=== PATIENT | male | born 1945 | race Asian ===

== ENCOUNTER 2016-06-29 07:48 | Outpatient (CLI) | payer OTHER | END 2016-06-29 20:11 | disposition home or self-care (01) | LOC: LABW 07:48 | DX: Z95.2 Presence of prosthetic heart valve (principal); I71.2 Thoracic aortic aneurysm, without rupture; Z98.61 Coronary angioplasty status; Z79.01 Long term (current) use of anticoagulants; Z51.81 Encounter for therapeutic drug level monitoring | CPT/HCPCS: 36415; 85610 ==

== ENCOUNTER 2016-07-27 07:36 | Outpatient (CLI) | payer OTHER | END 2016-07-27 19:39 | disposition home or self-care (01) | LOC: LABW 07:36 | DX: Z95.2 Presence of prosthetic heart valve (principal); I71.2 Thoracic aortic aneurysm, without rupture; Z98.61 Coronary angioplasty status; Z79.01 Long term (current) use of anticoagulants; Z51.81 Encounter for therapeutic drug level monitoring | CPT/HCPCS: 36415; 85610 ==

== ENCOUNTER 2016-08-24 08:04 | Outpatient (CLI) | payer OTHER | END 2016-08-24 09:04 | disposition home or self-care (01) | LOC: LABW 08:04 | DX: Z95.2 Presence of prosthetic heart valve (principal); I71.2 Thoracic aortic aneurysm, without rupture; Z98.61 Coronary angioplasty status; Z79.01 Long term (current) use of anticoagulants; Z51.81 Encounter for therapeutic drug level monitoring | CPT/HCPCS: 36415; 85610 ==

== ENCOUNTER 2016-08-31 07:49 | Outpatient (CLI) | payer OTHER | END 2016-08-31 19:16 | disposition home or self-care (01) | LOC: LABW 07:49 | DX: Z95.2 Presence of prosthetic heart valve (principal); I71.2 Thoracic aortic aneurysm, without rupture; Z98.61 Coronary angioplasty status; Z79.01 Long term (current) use of anticoagulants; Z51.81 Encounter for therapeutic drug level monitoring | CPT/HCPCS: 36415; 85610 ==

== ENCOUNTER 2016-10-19 07:31 | Outpatient (CLI) | payer OTHER | END 2016-10-19 19:28 | disposition home or self-care (01) | LOC: LABW 07:31 | DX: Z95.2 Presence of prosthetic heart valve (principal); I71.2 Thoracic aortic aneurysm, without rupture; Z98.61 Coronary angioplasty status; Z79.01 Long term (current) use of anticoagulants; Z51.81 Encounter for therapeutic drug level monitoring | CPT/HCPCS: 36415; 85610 ==

== ENCOUNTER 2016-10-22 10:26 | Outpatient (CLI) | payer OTHER | END 2016-10-22 11:30 | disposition home or self-care (01) | LOC: LABW 10:26 | DX: Z95.2 Presence of prosthetic heart valve (principal); I71.2 Thoracic aortic aneurysm, without rupture; Z98.61 Coronary angioplasty status; Z79.01 Long term (current) use of anticoagulants; Z51.81 Encounter for therapeutic drug level monitoring | CPT/HCPCS: 36415; 85610 ==

== ENCOUNTER 2016-11-05 07:47 | Outpatient (CLI) | payer OTHER | END 2016-11-05 08:50 | disposition home or self-care (01) | LOC: LABW 07:47 | DX: Z95.2 Presence of prosthetic heart valve (principal); I71.2 Thoracic aortic aneurysm, without rupture; Z98.61 Coronary angioplasty status; Z79.01 Long term (current) use of anticoagulants; Z51.81 Encounter for therapeutic drug level monitoring | CPT/HCPCS: 36415; 85610 ==

== ENCOUNTER 2016-11-12 07:30 | Outpatient (CLI) | payer OTHER | END 2016-11-12 08:30 | disposition home or self-care (01) | LOC: LABW 07:30 | DX: Z95.2 Presence of prosthetic heart valve (principal); I71.2 Thoracic aortic aneurysm, without rupture; Z98.61 Coronary angioplasty status; Z79.01 Long term (current) use of anticoagulants; Z51.81 Encounter for therapeutic drug level monitoring | CPT/HCPCS: 36415; 85610 ==

== ENCOUNTER 2016-11-29 07:34 | Outpatient (CLI) | payer OTHER | END 2016-11-29 08:35 | disposition home or self-care (01) | LOC: LABW 07:34 | DX: Z95.2 Presence of prosthetic heart valve (principal); I71.2 Thoracic aortic aneurysm, without rupture; Z98.61 Coronary angioplasty status; Z79.01 Long term (current) use of anticoagulants; Z51.81 Encounter for therapeutic drug level monitoring | CPT/HCPCS: 36415; 85610 ==

== ENCOUNTER 2016-12-13 07:34 | Outpatient (CLI) | payer OTHER | END 2016-12-13 19:24 | disposition home or self-care (01) | LOC: LABW 07:34 | DX: Z95.2 Presence of prosthetic heart valve (principal); I71.2 Thoracic aortic aneurysm, without rupture; Z98.61 Coronary angioplasty status; Z79.01 Long term (current) use of anticoagulants; Z51.81 Encounter for therapeutic drug level monitoring | CPT/HCPCS: 36415; 85610 ==

== ENCOUNTER 2017-01-07 07:49 | Outpatient (CLI) | payer OTHER | END 2017-01-07 08:50 | disposition home or self-care (01) | LOC: LABW 07:49 | DX: Z95.2 Presence of prosthetic heart valve (principal); I71.2 Thoracic aortic aneurysm, without rupture; Z98.61 Coronary angioplasty status; Z79.01 Long term (current) use of anticoagulants; Z51.81 Encounter for therapeutic drug level monitoring | CPT/HCPCS: 36415; 85610 ==

== ENCOUNTER 2017-01-14 07:40 | Outpatient (CLI) | payer OTHER | END 2017-01-14 19:03 | disposition home or self-care (01) | LOC: LABW 07:40 | DX: Z95.2 Presence of prosthetic heart valve (principal); I71.2 Thoracic aortic aneurysm, without rupture; Z98.61 Coronary angioplasty status; Z79.01 Long term (current) use of anticoagulants; Z51.81 Encounter for therapeutic drug level monitoring | CPT/HCPCS: 36415; 85610 ==

== ENCOUNTER 2017-02-01 09:49 | Outpatient (CLI) | payer OTHER | END 2017-02-01 20:02 | disposition home or self-care (01) | LOC: LABW 09:49 | DX: Z95.2 Presence of prosthetic heart valve (principal); I71.2 Thoracic aortic aneurysm, without rupture; Z98.61 Coronary angioplasty status; Z79.01 Long term (current) use of anticoagulants; Z51.81 Encounter for therapeutic drug level monitoring | CPT/HCPCS: 36415; 85610 ==

== ENCOUNTER 2017-02-16 07:45 | Outpatient (CLI) | payer OTHER | END 2017-02-16 19:04 | disposition home or self-care (01) | LOC: LABW 07:45 | DX: Z95.2 Presence of prosthetic heart valve (principal); I71.2 Thoracic aortic aneurysm, without rupture; Z98.61 Coronary angioplasty status; Z79.01 Long term (current) use of anticoagulants; Z51.81 Encounter for therapeutic drug level monitoring | CPT/HCPCS: 36415; 85610 ==

== ENCOUNTER 2017-03-08 07:50 | Outpatient (CLI) | payer OTHER | END 2017-03-08 08:50 | disposition home or self-care (01) | LOC: LABW 07:50 | DX: Z95.2 Presence of prosthetic heart valve (principal); I71.2 Thoracic aortic aneurysm, without rupture; Z98.61 Coronary angioplasty status; Z79.01 Long term (current) use of anticoagulants; Z51.81 Encounter for therapeutic drug level monitoring | CPT/HCPCS: 36415; 85610 ==

== ENCOUNTER 2017-03-22 08:06 | Outpatient (CLI) | payer OTHER | END 2017-03-22 19:00 | disposition home or self-care (01) | LOC: LABW 08:06 | DX: Z95.2 Presence of prosthetic heart valve (principal); I71.2 Thoracic aortic aneurysm, without rupture; Z98.61 Coronary angioplasty status; Z79.01 Long term (current) use of anticoagulants; Z51.81 Encounter for therapeutic drug level monitoring | CPT/HCPCS: 36415; 85610 ==

== ENCOUNTER 2017-04-12 07:46 | Outpatient (CLI) | payer OTHER | END 2017-04-12 19:01 | disposition home or self-care (01) | LOC: LABW 07:46 | DX: I71.2 Thoracic aortic aneurysm, without rupture (principal); Z95.2 Presence of prosthetic heart valve; Z98.61 Coronary angioplasty status; Z79.01 Long term (current) use of anticoagulants | CPT/HCPCS: 36415; 85610 ==

== ENCOUNTER 2017-05-13 07:46 | Outpatient (CLI) | payer OTHER | END 2017-05-13 18:57 | disposition home or self-care (01) | LOC: LABW 07:46 | DX: Z95.2 Presence of prosthetic heart valve (principal); I71.2 Thoracic aortic aneurysm, without rupture; Z98.61 Coronary angioplasty status; Z79.01 Long term (current) use of anticoagulants; Z51.81 Encounter for therapeutic drug level monitoring | CPT/HCPCS: 36415; 85610 ==

== ENCOUNTER 2017-06-09 08:20 | Outpatient (CLI) | payer OTHER | END 2017-06-09 19:18 | disposition home or self-care (01) | LOC: LABW 08:20 | DX: Z95.2 Presence of prosthetic heart valve (principal); I71.2 Thoracic aortic aneurysm, without rupture; Z98.61 Coronary angioplasty status; Z79.01 Long term (current) use of anticoagulants; Z51.81 Encounter for therapeutic drug level monitoring | CPT/HCPCS: 36415; 85610 ==

== ENCOUNTER 2017-07-05 07:43 | Outpatient (CLI) | payer OTHER | END 2017-07-05 19:05 | disposition home or self-care (01) | LOC: LABW 07:43 | DX: Z95.2 Presence of prosthetic heart valve (principal); I71.2 Thoracic aortic aneurysm, without rupture; Z98.61 Coronary angioplasty status; Z79.01 Long term (current) use of anticoagulants; Z51.81 Encounter for therapeutic drug level monitoring | CPT/HCPCS: 36415; 85610 ==

== ENCOUNTER 2017-08-18 07:32 | Outpatient (CLI) | payer OTHER | END 2017-08-18 19:10 | disposition home or self-care (01) | LOC: LABW 07:32 | DX: Z95.2 Presence of prosthetic heart valve (principal); I71.2 Thoracic aortic aneurysm, without rupture; Z98.61 Coronary angioplasty status; Z79.01 Long term (current) use of anticoagulants; Z51.81 Encounter for therapeutic drug level monitoring | CPT/HCPCS: 36415; 85610 ==

== ENCOUNTER 2017-09-14 07:49 | Outpatient (CLI) | payer OTHER | END 2017-09-14 21:45 | disposition home or self-care (01) | LOC: LABW 07:49 | DX: Z95.2 Presence of prosthetic heart valve (principal); I71.2 Thoracic aortic aneurysm, without rupture; Z98.61 Coronary angioplasty status; Z79.01 Long term (current) use of anticoagulants; Z51.81 Encounter for therapeutic drug level monitoring | CPT/HCPCS: 36415; 85610 ==

== ENCOUNTER 2017-10-13 07:47 | Outpatient (CLI) | payer OTHER | END 2017-10-13 19:08 | disposition home or self-care (01) | LOC: LABW 07:47 | DX: Z95.2 Presence of prosthetic heart valve (principal); I71.2 Thoracic aortic aneurysm, without rupture; Z98.61 Coronary angioplasty status; Z79.01 Long term (current) use of anticoagulants; Z51.81 Encounter for therapeutic drug level monitoring | CPT/HCPCS: 36415; 85610 ==

== ENCOUNTER 2017-11-10 07:46 | Outpatient (CLI) | payer OTHER | END 2017-11-10 20:38 | disposition home or self-care (01) | LOC: LABW 07:46 | DX: Z95.2 Presence of prosthetic heart valve (principal); I71.2 Thoracic aortic aneurysm, without rupture; Z98.61 Coronary angioplasty status; Z79.01 Long term (current) use of anticoagulants | CPT/HCPCS: 36415; 85610 ==

== ENCOUNTER 2017-12-02 07:33 | Outpatient (CLI) | payer OTHER | END 2017-12-02 22:01 | disposition home or self-care (01) | LOC: LABW 07:33 | DX: Z95.2 Presence of prosthetic heart valve (principal); Z79.01 Long term (current) use of anticoagulants; Z51.81 Encounter for therapeutic drug level monitoring | CPT/HCPCS: 36415; 85610 ==

== ENCOUNTER 2018-01-03 07:39 | Outpatient (CLI) | payer OTHER | END 2018-01-03 19:56 | disposition home or self-care (01) | LOC: LABW 07:39 | DX: I25.118 Atherosclerotic heart disease of native coronary artery with other forms of angina pectoris (principal); Z79.01 Long term (current) use of anticoagulants | CPT/HCPCS: 36415; 85610 ==

== ENCOUNTER 2018-02-01 07:49 | Outpatient (CLI) | payer OTHER | END 2018-02-01 21:29 | disposition home or self-care (01) | LOC: LABW 07:49 | DX: Z79.01 Long term (current) use of anticoagulants (principal); I25.118 Atherosclerotic heart disease of native coronary artery with other forms of angina pectoris | CPT/HCPCS: 36415; 85610 ==

== ENCOUNTER 2018-02-21 07:50 | Outpatient (CLI) | payer OTHER | END 2018-02-21 22:59 | disposition home or self-care (01) | LOC: LABW 07:50 | DX: I25.118 Atherosclerotic heart disease of native coronary artery with other forms of angina pectoris (principal); Z79.01 Long term (current) use of anticoagulants | CPT/HCPCS: 36415; 85610 ==

== ENCOUNTER 2018-03-27 07:58 | Outpatient (CLI) | payer OTHER | END 2018-03-27 19:18 | disposition home or self-care (01) | LOC: LABW 07:58 | DX: I25.118 Atherosclerotic heart disease of native coronary artery with other forms of angina pectoris (principal); Z79.01 Long term (current) use of anticoagulants | CPT/HCPCS: 36415; 85610 ==

== ENCOUNTER 2018-05-02 07:52 | Outpatient (CLI) | payer OTHER | END 2018-05-02 22:08 | disposition home or self-care (01) | LOC: LABW 07:52 | DX: I25.118 Atherosclerotic heart disease of native coronary artery with other forms of angina pectoris (principal); Z79.01 Long term (current) use of anticoagulants | CPT/HCPCS: 36415; 85610 ==

== ENCOUNTER 2018-07-24 07:56 | Outpatient (CLI) | payer OTHER | END 2018-07-24 21:46 | disposition home or self-care (01) | LOC: LABW 07:56 | DX: Z79.01 Long term (current) use of anticoagulants (principal); I25.118 Atherosclerotic heart disease of native coronary artery with other forms of angina pectoris | CPT/HCPCS: 36415; 85610 ==

== ENCOUNTER 2018-08-29 08:36 | Outpatient (CLI) | payer OTHER | END 2018-08-29 23:18 | disposition home or self-care (01) | LOC: LABW 08:36 | DX: I25.118 Atherosclerotic heart disease of native coronary artery with other forms of angina pectoris (principal); Z79.01 Long term (current) use of anticoagulants | CPT/HCPCS: 36415; 85610 ==

== ENCOUNTER 2018-09-01 16:35 | Outpatient (CLI) | payer OTHER | END 2018-09-01 16:40 | disposition short-term general hospital (02) | LOC: AMB 16:35 | DX: R40.20 Unspecified coma (principal); I46.9 Cardiac arrest, cause unspecified | CPT/HCPCS: A0425; A0433 ==

== ENCOUNTER 2018-09-01 16:44 | Emergency (ER) | payer OTHER ==
[~2018-09-01] VITALS: Ht 177.8 cm; Wt 113.4 kg
== END 2018-09-01 17:33 | disposition expired ==
LOC: ED 16:44